=== PATIENT | male | born 1980 | race Caucasian/White ===

== ENCOUNTER 2020-09-02 00:09 | Emergency (ER) | payer OTHER ==
[~2020-09-02] VITALS: Ht 177.8 cm; Wt 84.1 kg
[2020-09-02] MEDS ORDERED: diphenhydrAMINE 50MG/ML VIAL (J1200) IV STA (00:46)
[2020-09-02] MEDS ORDERED: NS 1,000 ML IV ONE (01:00)
[2020-09-02] MEDS ORDERED: METOCLOPRAMIDE INJ 10MG/2ML VIAL (J2765 PER 1) IV ONE (01:00)
[2020-09-02] MEDS ORDERED: KETOROLAC 30 MG/ML 1ML VIAL IV ONE (01:00)
[2020-09-02 01:14] LABS: BASO # 0.1 10^3/uL (0.0-0.2); BASO % 0.6 % (0.0-1.0); EOS # 0.1 10^3/uL (0.0-0.5); EOS % 0.8 % (0.0-3.0); HEMATOCRIT 44.2 % (42.0-52.0); HEMOGLOBIN 14.2 g/dl (13.5-17.5); LYMPH # 2.2 10^3/uL (1.5-5.0); LYMPH % 22.9 % (24.0-44.0); MEAN CORPUSCULAR HEMOGLOBIN 27.8 pg (27.0-33.0); MEAN CORPUSCULAR HGB CONC 32.1 g/dl (32.0-36.5); MEAN CORPUSCULAR VOLUME 86.7 fl (80.0-96.0); MONO # 0.8 10^3/uL (0.0-0.8); NEUTROPHILS # 6.5 10^3/uL (1.5-8.5); NEUTROPHILS % 67.4 % (36.0-66.0); PLATELET COUNT, AUTOMATED 259 10^3/uL (150-450); WHITE BLOOD COUNT 9.7 10^3/uL (4.0-10.0)
[2020-09-02 02:12] VITALS: BP 130/90
== END 2020-09-02 02:16 | disposition home or self-care (01) ==
LOC: M ED 00:09
DX: R51.9 Headache, unspecified (principal); R11.0 Nausea; R68.83 Chills (without fever); G47.9 Sleep disorder, unspecified; F17.200 Nicotine dependence, unspecified, uncomplicated
CPT/HCPCS: 80047; 85025; 96361; 96374; 96375; 99284; J1200; J1885; J2765

== ENCOUNTER 2020-10-19 19:00 | Emergency (ER) | payer OTHER ==
[~2020-10-19] VITALS: Ht 170.2 cm; Wt 89.5 kg
[2020-10-19] MEDS ORDERED: NS 1,000 ML IV ONE (21:00)
[2020-10-19] MEDS ORDERED: KETOROLAC 30 MG/ML 1ML VIAL IV ONE (21:00)
[2020-10-19] MEDS ORDERED: ONDANSETRON 4MG/2ML VIAL IV ONE (21:00)
[2020-10-19] MEDS ORDERED: ONDA4TAB6 PO (22:24)
[2020-10-19] MEDS ORDERED: KETO10TAB PO (22:24)
[2020-10-19 22:38] VITALS: BP 153/96
== END 2020-10-19 22:41 | disposition home or self-care (01) ==
LOC: M ED 19:00
DX: T62.91XA Toxic effect of unspecified noxious substance eaten as food, accidental (unintentional), initial encounter (principal); R11.2 Nausea with vomiting, unspecified; R51.9 Headache, unspecified; F17.200 Nicotine dependence, unspecified, uncomplicated
CPT/HCPCS: 96361; 96374; 96375; 99284; J1885; J2405

== ENCOUNTER 2021-06-07 10:12 | Emergency (ER) | payer OTHER ==
[~2021-06-07] VITALS: Ht 177.8 cm; Wt 86.4 kg
[~2021-06-07 10:12] MED LIST: KETO10TAB PO; ONDA4TAB6 PO
[2021-06-07 11:05] LABS: BASO # 0.1 10^3/uL (0.0-0.2); BASO % 0.5 % (0.0-1.0); EOS # 0.1 10^3/uL (0.0-0.5); EOS % 1.1 % (0.0-3.0); HEMATOCRIT 41.3 % (42.0-52.0); HEMOGLOBIN 13.5 g/dl (13.5-17.5); LYMPH # 2.1 10^3/uL (1.5-5.0); LYMPH % 21.7 % (24.0-44.0); MEAN CORPUSCULAR HEMOGLOBIN 28.4 pg (27.0-33.0); MEAN CORPUSCULAR HGB CONC 32.7 g/dl (32.0-36.5); MEAN CORPUSCULAR VOLUME 86.9 fl (80.0-96.0); NEUTROPHILS # 6.4 10^3/uL (1.5-8.5); NEUTROPHILS % 66.4 % (36.0-66.0); PLATELET COUNT, AUTOMATED 208 10^3/uL (150-450); RED BLOOD COUNT 4.75 10^6/uL (4.30-6.10); WHITE BLOOD COUNT 9.7 10^3/uL (4.0-10.0)
--- NOTE | 2021-06-07 11:29 | REP ---
INDICATION: right 7th CN palsy. COMPARISON: None. TECHNIQUE: CT brain performed in the axial plane. Coronal reconstruction images are performed. FINDINGS: The ventricles are normal in size and position.. There is no midline shift or mass effect. Brown-white differentiation is well maintained. There is no acute intracranial hemorrhage or extra-axial fluid collection. Bone window examination is unremarkable. The visualized mastoid air cells and paranasal sinuses are clear. IMPRESSION: Negative noncontrast CT brain. <Electronically signed by Idris Brown > 06/07/21 1122
[2021-06-07 11:34] LABS: ALBUMIN 4.3 GM/DL (3.2-5.2); ALT/SGPT 25 U/L (12-78); BILIRUBIN,DIRECT 0.2 MG/DL (0.0-0.2); BILIRUBIN,TOTAL 0.7 MG/DL (0.2-1.0); BLOOD UREA NITROGEN 11 MG/DL (7-18); CALCIUM LEVEL 9.1 MG/DL (8.5-10.1); CARBON DIOXIDE LEVEL 31 MEQ/L (21-32); CHLORIDE LEVEL 107 MEQ/L (98-107); CREATININE FOR GFR 0.86 MG/DL (0.70-1.30); GLOMERULAR FILTRATION RATE > 60.0 (>60); GLUCOSE, FASTING 80 MG/DL (70-100); POTASSIUM SERUM 4.1 MEQ/L (3.5-5.1); SODIUM LEVEL 141 MEQ/L (136-145); TOTAL PROTEIN 6.9 GM/DL (6.4-8.2)
[2021-06-07] MEDS ORDERED: predniSONE 20 MG TAB PO ONE (11:55)
[2021-06-07] MEDS ORDERED: valACYclovir HCL 500 MG TAB PO ONE (11:55)
[2021-06-07] MEDS ORDERED: AKWA1OIN OD (11:58)
[2021-06-07] MEDS ORDERED: VALT1TAB PO (11:58)
[2021-06-07] MEDS ORDERED: PRED20TA PO (11:58)
[2021-06-07] MEDS ORDERED: ARTIDRO OD (11:58)
[2021-06-07 12:00] VITALS: BP 132/92
== END 2021-06-07 12:13 | disposition home or self-care (01) ==
LOC: M ED 10:12 → EDBD 10:12 → M ED 12:13
DX: G51.0 Bell's palsy (principal); Z79.899 Other long term (current) drug therapy
CPT/HCPCS: 36415; 70450; 80048; 80076; 84443; 85025; 93041; 94760; 99285; J7512

== ENCOUNTER 2021-06-19 02:55 | Emergency (ER) | payer OTHER ==
[~2021-06-19] VITALS: Ht 177.8 cm; Wt 88.0 kg
[~2021-06-19 02:55] MED LIST changes: +AKWA1OIN OD; +ARTIDRO OD; +PRED20TA PO; +VALT1TAB PO
[2021-06-19 03:45] VITALS: BP 157/102
== END 2021-06-19 03:58 | disposition left against medical advice (07) ==
LOC: M ED 02:55
DX: Z53.21 Procedure and treatment not carried out due to patient leaving prior to being seen by health care provider (principal)

== ENCOUNTER 2022-11-18 03:06 | Emergency (ER) | payer OTHER ==
[~2022-11-18] VITALS: Ht 215.9 cm; Wt 94.3 kg
[2022-11-18] MEDS ORDERED: ACETAMINOPHEN TAB 650MG DOSE (2X325MG) PO ONE (07:30)
[2022-11-18] MEDS ORDERED: ONDANSETRON 4MG ORAL DISINTEGRATING TAB PO ONE (07:30)
[2022-11-18] MEDS ORDERED: IBUPROFEN 600MG TAB PO ONE (07:30)
[2022-11-18] MEDS ORDERED: ONDA4TAB6 PO (09:00)
[2022-11-18] MEDS ORDERED: IBUP80TA PO (09:01)
[2022-11-18 09:13] VITALS: BP 170/96
== END 2022-11-18 09:18 | disposition home or self-care (01) ==
LOC: M ED 03:06
DX: G43.909 Migraine, unspecified, not intractable, without status migrainosus (principal); I49.8 Other specified cardiac arrhythmias; I45.10 Unspecified right bundle-branch block; F17.200 Nicotine dependence, unspecified, uncomplicated; Z79.83 Long term (current) use of bisphosphonates

== ENCOUNTER 2023-04-19 10:44 | Observation (INO) | payer OTHER ==
[~2023-04-19] VITALS: Ht 175.3 cm; Wt 101.4 kg
[~2023-04-19 10:44] MED LIST changes: +IBUP80TA PO
[2023-04-19] MEDS ORDERED: LABETALOL 100MG/20ML VIAL IV STA (11:49)
[2023-04-19 11:50] LABS: BASO # 0.1 10^3/uL (0.0-0.2); BASO % 0.5 % (0.0-1.0); EOS # 0.1 10^3/uL (0.0-0.5); EOS % 0.9 % (0.0-3.0); HEMATOCRIT 41.9 % (42.0-52.0); LYMPH # 1.4 10^3/uL (1.5-5.0); MEAN CORPUSCULAR HEMOGLOBIN 28.2 pg (27.0-33.0); MEAN CORPUSCULAR HGB CONC 33.4 g/dl (32.0-36.5); MEAN CORPUSCULAR VOLUME 84.3 fl (80.0-96.0); MONO # 0.7 10^3/uL (0.0-0.8); MONO % 6.8 % (2.0-8.0); NEUTROPHILS # 7.5 10^3/uL (1.5-8.5); NEUTROPHILS % 77.4 % (36.0-66.0); PLATELET COUNT, AUTOMATED 228 10^3/uL (150-450); RED BLOOD COUNT 4.97 10^6/uL (4.30-6.10); WHITE BLOOD COUNT 9.7 10^3/uL (4.0-10.0)
[2023-04-19 12:00] LABS: INR 0.99; PROTHROMBIN TIME 13.3 SECONDS (12.5-14.5)
[2023-04-19 12:02] LABS: PARTIAL THROMBOPLASTIN TIME 26.1 SECONDS (24.8-34.2)
[2023-04-19 12:24] LABS: BLOOD UREA NITROGEN 13 MG/DL (9-23); CALCIUM LEVEL 9.9 MG/DL (8.5-10.1); CARBON DIOXIDE LEVEL 29 MMOL/L (20-31); CHLORIDE LEVEL 106 MMOL/L (98-107); CK-MB VALUE MASS < 1.0 NG/ML (<3.6); CPK CREATINE PHOSPHOKINASE 48 U/L (46-171); CREATININE FOR GFR 0.82 MG/DL (0.70-1.30); GLOMERULAR FILTRATION RATE > 60.0 (>60); GLUCOSE, FASTING 93 MG/DL (60-100); MB/CK RELATIVE INDEX 2.08 (< OR =4); SODIUM LEVEL 140 MMOL/L (136-145)
[2023-04-19] MEDS ORDERED: ISOVUE-370 76% 100ML VIAL As Ordered ONE (12:26)
[2023-04-19 12:27] LABS: THYROID STIMULATING HORMONE 0.622 uIU/ML (0.55-4.78)
[2023-04-19 13:53] LABS: CK-MB VALUE MASS < 1.0 NG/ML (<3.6)
[2023-04-19 13:54] LABS: CPK CREATINE PHOSPHOKINASE 44 U/L (46-171); MB/CK RELATIVE INDEX 2.27 (< OR =4)
[2023-04-19] MEDS ORDERED: MOM 30ML SUSPENSION UDC PO PRN (15:55)
[2023-04-19] MEDS ORDERED: ACETAMINOPHEN TAB 650MG DOSE (2X325MG) PO PRN (15:55)
[2023-04-19] MEDS ORDERED: IBUP1TAB7 PO (16:07)
[2023-04-19] MEDS ORDERED: ONDA4TAB6 PO (16:07)
[2023-04-19] MEDS ORDERED: HOME MED LIST COMPLETE! XX SCH (16:10)
[2023-04-19 17:39] LABS: RSV AMPLIFICATION NEGATIVE (NEGATIVE)
[2023-04-19] MEDS ORDERED: RIVAROXABAN 10MG TAB (XARELTO) PO SCH (18:00)
[2023-04-19 22:05] VITALS: BP 119/76; TEMP 97.8; O2SAT 95
[2023-04-19 23:22] VITALS: BP 121/73; TEMP 97.6; O2SAT 93
[2023-04-20 03:19] VITALS: BP 111/74; TEMP 98; O2SAT 99
[2023-04-20 06:16] VITALS: BP_SYST 106; BP_SYST 119; BP_SYST 122; BP_DIAS 73; BP_DIAS 74; BP_DIAS 76
[2023-04-20 06:32] LABS: HEMATOCRIT 41.1 % (42.0-52.0); HEMOGLOBIN 13.8 g/dl (13.5-17.5); MEAN CORPUSCULAR HEMOGLOBIN 28.8 pg (27.0-33.0); MEAN CORPUSCULAR HGB CONC 33.6 g/dl (32.0-36.5); MEAN CORPUSCULAR VOLUME 85.8 fl (80.0-96.0); PLATELET COUNT, AUTOMATED 218 10^3/uL (150-450); RED BLOOD COUNT 4.79 10^6/uL (4.30-6.10); WHITE BLOOD COUNT 7.3 10^3/uL (4.0-10.0)
[2023-04-20 07:00] LABS: BLOOD UREA NITROGEN 13 MG/DL (9-23); CALCIUM LEVEL 9.4 MG/DL (8.5-10.1); CARBON DIOXIDE LEVEL 29 MMOL/L (20-31); CHLORIDE LEVEL 106 MMOL/L (98-107); CREATININE FOR GFR 0.85 MG/DL (0.70-1.30); GLOMERULAR FILTRATION RATE > 60.0 (>60); GLUCOSE, FASTING 93 MG/DL (60-100); POTASSIUM SERUM 4.1 MMOL/L (3.5-5.1); SODIUM LEVEL 141 MMOL/L (136-145)
[2023-04-20] MEDS ORDERED: LR 2,000 ML IV SCH (07:45)
[2023-04-20 08:13] VITALS: BP 130/81; TEMP 97.8; O2SAT 97
[2023-04-20 08:40] VITALS: BP 130/81
[2023-04-20] MEDS ORDERED: ONDA4TAB6 PO (09:54)
[2023-04-20] MEDS ORDERED: AMLO1TAB25 PO (09:54)
== END 2023-04-20 13:58 | disposition home or self-care (01) ==
LOC: M ED 10:44 → M ED INP 15:51 → M PCU 21:57
PROVIDERS: ADMIT Student in an Organized Health Care Education/Training Program; ATTEND Student in an Organized Health Care Education/Training Program
DX: R55 Syncope and collapse (principal); I10 Essential (primary) hypertension; K52.9 Noninfective gastroenteritis and colitis, unspecified; F17.210 Nicotine dependence, cigarettes, uncomplicated; Z79.899 Other long term (current) drug therapy
CPT/HCPCS: 36415; 70450; 70496; 70498; 71045; 80047; 80048; 82550; 82553; 83735; 84443; 84484; 85025; 85027; 85610; 85730; 87631; 93005; 93041; 93306; 94760; 96374; 99285; Q9967